=== PATIENT | female | born 1975 | race Asian ===

== ENCOUNTER 2021-11-26 16:23 | Emergency (ER) | payer MEDICAID, SELFPAY ==
[~2021-11-26] VITALS: Ht 157.5 cm; Wt 73.9 kg
--- NOTE | 2021-11-26 16:50 | NUR ---
Patient to ER tent for evaluation.
[2021-11-26 16:56] VITALS: BP_SYST 149
--- NOTE | 2021-11-26 16:56 | NUR ---
pt. here with sore throat, DAVEY, cough and generalized body ache 6/10 on pain scale X 3 days, here requesting covid test
--- NOTE | 2021-11-26 17:13 | NUR ---
covid swab performed outside tent and sent to lab.
--- NOTE | 2021-11-26 18:35 | NUR ---
ER in tent examing patient.
[2021-11-26] MEDS ORDERED: PRED20TA PO (18:40)
[2021-11-26] MEDS ORDERED: ALBU8.5H8 INH (18:40)
[2021-11-26 19:21] VITALS: BP_SYST 157
--- NOTE | 2021-11-26 19:21 | NUR ---
Patient given written and verbal discharge instructions and verbalizes understanding. ER Dr. Haile discussed with patient the results and treatment provided. Patient in stable condition. ID arm band removed. Rx of albuterol and prednisone given. Patient educated on pain management and to follow up with PMD. Pain Scale 5. Opportunity for questions provided and answered. Medication side effect fact sheet provided.
== END 2021-11-26 19:21 | disposition home or self-care (01) ==
LOC: SED 16:23
DX: U07.1 COVID-19 (principal); J40 Bronchitis, not specified as acute or chronic; Z79.899 Other long term (current) drug therapy
CPT/HCPCS: 36415; 99283

== ENCOUNTER 2021-12-18 22:14 | Emergency (ER) | payer MEDICAID, OTHER, SELFPAY ==
[~2021-12-18] VITALS: Ht 157.5 cm; Wt 73.9 kg
[~2021-12-18 22:14] MED LIST: ALBU8.5H8 INH; PRED20TA PO
[2021-12-18 22:35] VITALS: BP_SYST 148
[2021-12-19] MEDS ORDERED: METOCLOPRAMIDE HCL 10 MG TABLET PO ONE (02:45)
[2021-12-19] MEDS ORDERED: DIPHENHYDRAMINE HCL 50 MG CAPSULE PO ONE (02:45)
[2021-12-19] MEDS ORDERED: PRO40 PO (02:47)
[2021-12-19] MEDS ORDERED: METO-290 PO (02:48)
[2021-12-19 03:25] VITALS: BP_SYST 143
== END 2021-12-19 03:25 | disposition home or self-care (01) ==
LOC: SED 22:14
DX: R07.89 Other chest pain (principal); R51.9 Headache, unspecified; N94.6 Dysmenorrhea, unspecified; I10 Essential (primary) hypertension
CPT/HCPCS: 93005; 99283; J8597; Q0163